=== PATIENT | female | born 1990 | race African-American/Black ===

== ENCOUNTER 2016-12-26 10:21 | Outpatient (CLI) | payer OTHER ==
--- NOTE | 2016-12-26 13:08 | ULT ---
COMPLETE OB ULTRASOUND GREATER THAN 14 WEEKS: FINDINGS: Single viable intrauterine fetus in cephalic presentation. Placenta is posterior. Amniotic fluid is w ithin normal limits. heart rate 132 beats/minute. Lower uterine segment and cervix were very po óscar seen so that cervical length could not be measured. anatomy: Visualized brain, four chamber heart, three vessel cord, stomach, bladder, kidneys and visualiz ed extremities are unremarkable. biometry: BPD 4.8 cm 20 weeks 3 days HC 17.9 cm 20 weeks 2 days AC 14.2 cm 19 weeks 4 days FL 3.3 cm 20 weeks 3 days IMPRESSION: Single viable intrauterine fetus, 20 weeks 1 day gestational age and FEMI 18, which is the same a s the clinical age by LMP. Estimated weight 325 grams. Lower uterine segment and cervical were very poorly seen and cervical length could not be measured. POS: [facility]
== END 2016-12-26 10:22 | disposition home or self-care (01) ==
LOC: ULT 10:21
PROVIDERS: ATTEND Nurse Practitioner
DX: O09.A2 Supervision of pregnancy with history of molar pregnancy, second trimester (principal); Z3A.20 20 weeks gestation of pregnancy
CPT/HCPCS: 76805

== ENCOUNTER 2017-04-08 07:56 | Day surgery (SDC) | payer OTHER ==
[2017-04-08 08:34] VITALS: BMI 25.0
[2017-04-08 09:11] LABS: Bilirubin Negative (Negative); Blood, Urine Negative (Negative); Clarity CLOUDY (Clear); Glucose, Urine (Dipstick) Negative (Negative); Leukocyte Large (Negative); Nitrite Positive (Negative); Protein, Urine (Dipstick) Negative (Neg-Trace); Specific Gravity, Urine 1.018 (1.002-1.036)
[2017-04-08 09:12] LABS: Bacteria/HPF 4+ HPF (None Seen); Squamous Epithelial 0-3 HPF (0-3)
[2017-04-08 09:16] LABS: Pathc Cast-AUWi Flag 2.98 (0-2.49)
[2017-04-08 09:22] LABS: Hyaline Casts/LPF 0-3 HYALINE CAST LPF (0-3 Hyaline); Manual Microscopic Reviewed? No Path Casts Seen; RBC/HPF 0-3 HPF (0-3)
[2017-04-08 09:39] LABS: FFN Internal QC Analyzer PASS (PASS); FFN Internal QC Cassette PASS (PASS); Fetal Fibronectin Negative (Negative)
[2017-04-08] MEDS ORDERED: cefTRIAXone\\ROCEPHIN 1 GM VIAL IM SCH ×2 (10:00→10:30)
[2017-04-08] MEDS ORDERED: Lidocaine 1% PF 5 ML VIAL FS SCH (10:30)
--- NOTE | 2017-04-08 14:52 | PRG ---
DATE OF SERVICE: 04/08/2017 OB ED NOTE TIME OF SERVICE: 10:15. PRESENTING COMPLAINT: Vaginal discharge with small amount of spotting. HISTORY OF PRESENT ILLNESS: Ms. Wu is a 26-year-old 3, para 2, at 34 weeks gestation who s ees Dr. Rodriguez Gold at [facility]. She reports that she is currently taking Macrobid for UTI . She reports noncompliance with her therapy. She states she had a small amount of vaginal discharg e this morning with a small amount of blood. She denies recent intercourse. She denies fever, chill s, nausea, vomiting or rupture of membranes. She reports an active fetus. She denies significant lo wer back pain. OB AND BI LEAD HISTORY: x2. Denies history of complications. PAST MEDICAL HISTORY: None. PAST SURGICAL HISTORY: None. ALLERGIES: SEAFOOD. SOCIAL HISTORY: Denies tobacco, alcohol, or drug use. FAMILY HISTORY: Noncontributory. REVIEW OF SYSTEMS: Noncontributory. PHYSICAL EXAMINATION: GENERAL: White female, in no acute distress. VITAL SIGNS: Temperature 98.4, respirations 18 and blood pressure 119/72. HEENT: Within normal limits. LUNGS: Clear to auscultation bilaterally. HEART: Regular rhythm. ABDOMEN: Soft and nontender. FHTs 130s to 140s. GENITOURINARY: Vulva is without lesions. Vagina has a small amount of visible discharge. Cervical exam is deferred. No CVA tenderness is noted. [employer]-3 and fibronectin collected in Fem-cath UA. LABORATORY DATA: Fem cath UA reveals positive nitrites, large leukocyte esterase, greater than 50 wb c's with 4+ bacteria, no RBCs. fibronectin was negative. [employer]-3 was positive for both Rachelle a nd Trichomonas. IMPRESSION: 1. Uncomplicated urinary tract infection of without evidence of pyelonephritis. The patie nt has been noncompliant on therapy. 2. Vaginal trichomoniasis. 3. Vaginal Rachelle. PLAN: 1. Rocephin 1 gram IM x1 on Labor and Delivery Unit. 2. Flagyl 500 p.o. b.i.d. x5 days. 3. The patient to follow up with Dr. Gold tomorrow and can receive treatment for candidal vulvar ca ndidiasis after antibiotics are completed for her UTI.
== END 2017-04-08 11:10 | disposition home or self-care (01) ==
LOC: L&D/OP 07:56
PROVIDERS: ATTEND Family Medicine
DX: O23.43 Unspecified infection of urinary tract in pregnancy, third trimester (principal); A59.01 Trichomonal vulvovaginitis; B37.3 Candidiasis of vulva and vagina; O26.853 Spotting complicating pregnancy, third trimester; Z3A.34 34 weeks gestation of pregnancy; Z79.2 Long term (current) use of antibiotics; Z91.013 Allergy to seafood
CPT/HCPCS: 81001; 82731; 87480; 87510; 87660; 96372; 99284; A4353; J0696; J2001

== ENCOUNTER 2019-08-18 09:38 | Outpatient (CLI) | payer OTHER ==
--- NOTE | 2019-08-18 10:35 | ULT ---
Obstetrical ultrasound: 08/18/2019 COMPARISON: None HISTORY: anatomy assessment TECHNIQUE: Multiplanar grayscale sonographic imaging of the gravid uterus obtained. FINDINGS: Cervical length is 3.7 cm. Single intrauterine gestation present with a vertex presentation . Placenta located anteriorly with no evidence for previa or abruption. Four-chamber heart view appears normal. heart rate is 144 bpm. The stomach, kidneys, urinary bladder, umbilical cord and cord insertion site, nose and lips, s pine, and intracranial contents appear grossly unremarkable. Amniotic fluid index is 11.1 cm. biometry: BPD 7.0 cm 28 weeks 2 days HC 26.1 cm 28 weeks 3 days Abdominal circumference 23.9 cm 28 weeks 2 days FL 5 cm 27 weeks 1 day Average age based on ultrasound is 28 weeks 1 days with estimated date of delivery on 11/09/2019. Estimated weight 1133 g +/- 165 g (3rd percentile). Please note that this percentile may be art ificially decreased as the gestational age based on last menstrual period is 29 weeks 5 days. IMPRESSION: Intrauterine gestation as detailed above.
== END 2019-08-18 09:39 | disposition home or self-care (01) ==
LOC: BICULT 09:38
PROVIDERS: ATTEND Family Medicine
DX: O09.892 Supervision of other high risk pregnancies, second trimester (principal)
CPT/HCPCS: 76805

== ENCOUNTER 2019-10-06 09:57 | Inpatient (IN) | payer OTHER ==
[2019-10-06 10:31] VITALS: BMI 29.0
[2019-10-06] MEDS ORDERED: EPHEDRINE 25 MG/5 ML SYRINGE ONE (11:28)
[2019-10-06] MEDS ORDERED: Bupivacaine/Epinephrine 0.25% 30 ML VIAL ONE (11:28)
[2019-10-06 11:29] LABS: #Basophils 0.1 thou/uL (0.0-0.2); #Eosinphils 0.2 thou/uL (0.0-0.7); #Lymphocytes 1.5 thou/uL (1.20-3.40); #Monocytes 0.8 thou/uL (0.11-0.59); #Neutrophils 4.7 thou/uL (1.40-6.50); %Basophils 0.9 % (0.0-1.0); %Eosinophils 2.1 % (0.0-10.0); %Lymphocytes 20.6 % (21.0-51.0); %Monocytes 11.7 % (0.0-10.0); %Neutrophils 64.7 % (42.0-75.0); Hemoglobin 11.2 g/dL (12.0-16.0); Mean Corpuscular HGB CONC 33.2 g/dL (32.0-36.0); Mean Corpuscular Hemoglobin 31.4 pg (27.0-31.0); Mean Corpuscular Volume 94.6 fL (78.0-98.0); Mean Platelet Volume 7.9 fL (7.4-10.4); Platelet Count 224 thou/uL (130-400); RBC Distribution Width 12.7 % (11.5-14.5); Red Blood Cell (RBC) Count 3.56 mill/uL (4.20-5.40); White Blood Cell (WBC) Count 7.2 thou/uL (4.8-10.8)
[2019-10-06 11:50] LABS: ALT (SGPT) 7 U/L (8-55); AST (SGOT) 16 U/L (5-34); Alkaline Phosphatase 143 U/L (40-110); Anion Gap 8 mmol/L (10-20); BUN (Urea Nitrogen) 5 mg/dL (7.0-18.7); Bilirubin, Total 0.3 mg/dL (0.2-1.2); Calc. Creatinine Clearance 154 mL/min (70-130); Calcium 8.5 mg/dL (7.8-10.44); Carbon Dioxide 25 mmol/L (22-29); Chloride 109 mmol/L (98-107); Estimated GFR-MDRD Greater than 90; Glucose 84 mg/dL (70-105); Potassium 3.4 mmol/L (3.5-5.1); Sodium 139 mmol/L (136-145)
[2019-10-06 11:56] LABS: Creatinine, Urine 101.65 mg/dL (47-110)
--- NOTE | 2019-10-06 12:18 | ULT ---
ULTRASOUND BIOPHYSICAL PROFILE: DATE: 10/06/2019 HISTORY: 29-year-old female in third trimester with preeclampsia FINDINGS: breathin tone: 2 movement: 2 Amniotic fluid volume: 2 lie: Vertex heart rate: 139 bpm DELORES: 13 cm IMPRESSION: Normal biophysical profile score of 8 out of 8, excluding the nonstress test.
[2019-10-06] MEDS ORDERED: Betamet Acet/Betamet Na Ph 30 MG/5 ML VIAL IM SCH (13:00)
[2019-10-06] MEDS ORDERED: hydrALAZINE 20 MG/ML VIAL ONE (14:56)
[2019-10-06] MEDS ORDERED: Penicillin G Potassium 5 MILL.UNITS in Sodium Chloride 0.9% 100 ML IVPB SCH (15:00)
[2019-10-06] MEDS ORDERED: Butorphanol Tartrate 1 MG/ML VIAL SLOW IVP PRN (15:04)
[2019-10-06] MEDS ORDERED: Carboprost 250 MCG/ML AMP IM PRN (15:04)
[2019-10-06] MEDS ORDERED: Diphenoxylate HCl/Atropine Tablet PO PRN (15:04)
[2019-10-06] MEDS ORDERED: hydrALAZINE 20 MG/ML VIAL SLOW IVP PRN (15:04)
[2019-10-06] MEDS ORDERED: Ondansetron PF 4 MG/2 ML Vial IVP PRN (15:04)
[2019-10-06] MEDS ORDERED: Lidocaine 1% (PF) 30 ML VIAL SC PRN (15:04)
[2019-10-06] MEDS ORDERED: Promethazine HCl 25 MG/ML VIAL IM PRN (15:04)
[2019-10-06] MEDS ORDERED: HYDROcodone/Acetaminophen 5/325 mg Tablet PO PRN (15:04)
[2019-10-06] MEDS ORDERED: Misoprostol 200 MCG TAB PR PRN (15:04)
[2019-10-06] MEDS ORDERED: NS w/ Oxytocin 10 units 500 ML IV SCH (15:15)
[2019-10-06 17:42] LABS: HBSAg Index 0.14 S/CO (0-0.99); Hep B Surf Ag Non-Reactive S/CO (NonReactive); Syphilis Antibody Nonreactive (Nonreactive); Syphilis Antibody Index 0.15 S/CO (<1.00 Non-Reactive)
[2019-10-07] MEDS ORDERED: Betamet Acet/Betamet Na Ph 30 MG/5 ML VIAL IM SCH (00:01)
[2019-10-07] MEDS: Misoprostol 100 MCG TAB PO SCH ×2 (00:23→09:02)
[2019-10-07] MEDS: Lactated Ringer's 1,000 ML IV SCH ×3 (00:24→11:25)
[2019-10-07] MEDS ORDERED: Fentanyl 4 mcg/Bup 0.1% Cadd 100 ML ONE ×3 (01:13→14:11)
[2019-10-07] MEDS ORDERED: diphenhydrAMINE 50 MG/ML VIAL IVP PRN (02:02)
[2019-10-07] MEDS ORDERED: Naloxone HCl 0.4 mg/ml Vial IVP PRN ×2 (02:02)
[2019-10-07] MEDS ORDERED: Ondansetron PF 4 MG/2 ML Vial IVP PRN ×2 (02:02→18:59)
[2019-10-07] MEDS ORDERED: Acetaminophen 325 MG TAB PO PRN (02:02)
[2019-10-07] MEDS ORDERED: EPHEDRINE 25 MG/5 ML SYRINGE SLOW IVP PRN (02:02)
[2019-10-07] MEDS ORDERED: Lactated Ringer's 500 ML IV PRN (02:02)
[2019-10-07] MEDS ORDERED: Promethazine HCl 25 MG/ML VIAL IM PRN ×2 (02:02→18:59)
[2019-10-07] MEDS ORDERED: Communication Order-Pharmacy FS SCH (02:15)
[2019-10-07] MEDS ORDERED: Fentanyl 4 mcg/Bupivacaine 0.1% Cassette 100 ML EPIDURAL SCH (02:15)
[2019-10-07] MEDS: Penicillin G 2.5 MILL.units 2.5 MILL.UNITS in Premix Bag 1 BAG IVPB SCH ×4 (04:49→14:09)
[2019-10-07] MEDS ORDERED: hydrALAZINE 20 MG/ML VIAL SLOW IVP SCH (06:45)
[2019-10-07] MEDS: NS w/ Oxytocin 10 units 500 ML IV SCH (09:03)
[2019-10-07] MEDS ORDERED: Magnesium Sulfate 20 gm/500 ml 20 GM/500 ML BAG ONE (10:01)
[2019-10-07] MEDS ORDERED: Magnesium Sulfate 20 gm/500 ml 20 GM/500 ML BAG IVPB PRN (10:49)
[2019-10-07] MEDS ORDERED: Magnesium Sulfate 20 gm/500 ml 4 GM/100 ML BAG IVPB SCH (11:00)
[2019-10-07 12:30] LABS: SARS-CoV-2 MS2 Positive; SARS-CoV-2 N Gene Negative; SARS-CoV-2 S Gene Negative; SARS-CoV-2 by NAA Not Detected (NotDetected); SARS-CoV-2 orf1ab Negative
[2019-10-07] MEDS: NS / Oxytocin 40 units/1000ml 1,000 ML IV PRN ×2 (17:25→18:42)
[2019-10-07] MEDS ORDERED: Carboprost 250 MCG/ML AMP ONE (18:30)
[2019-10-07] MEDS ORDERED: HYDROcodone/Acetaminophen 5/325 mg Tablet PO PRN (18:59)
[2019-10-07] MEDS ORDERED: diphenhydrAMINE 25 MG CAP PO PRN (18:59)
[2019-10-07] MEDS ORDERED: Calcium Gluconate 4.6 MEQ in Sodium Chloride 0.9% 100 ML IVPB PRN (18:59)
[2019-10-07] MEDS ORDERED: Benzocaine-Menthol 82.5 ML CAN TOP PRN (18:59)
[2019-10-07] MEDS ORDERED: Preparation H Ointment 28 GM TUBE PR PRN (18:59)
[2019-10-07] MEDS ORDERED: Milk Of Magnesia 30 ML UDCUP PO PRN (18:59)
[2019-10-07] MEDS ORDERED: NS / Oxytocin 40 units/1000ml 1,000 ML IV SCH (18:59)
[2019-10-07] MEDS ORDERED: Bisacodyl 10 MG SUPP PR PRN (18:59)
[2019-10-07] MEDS ORDERED: Diphenoxylate HCl/Atropine Tablet PO SCH (20:00)
[2019-10-07] MEDS: HYDROcodone/Acetaminophen 5/325 mg Tablet PO PRN (20:25)
[2019-10-07] MEDS: Docusate Calcium (SURFAK) 240 MG CAP PO SCH (21:33)
[2019-10-07] MEDS: Ibuprofen 800 MG TAB PO SCH (21:53)
[2019-10-08] MEDS ORDERED: Diphenoxylate HCl/Atropine Tablet PO PRN
[2019-10-08] MEDS ORDERED: hydrALAZINE 20 MG/ML VIAL ONE (00:51)
[2019-10-08] MEDS ORDERED: hydrALAZINE 20 MG/ML VIAL SLOW IVP PRN (00:52)
[2019-10-08] MEDS: Magnesium Sulfate 20 gm/500 ml 20 GM/500 ML BAG IVPB SCH ×2 (04:19→14:38)
[2019-10-08] MEDS: HYDROcodone/Acetaminophen 5/325 mg Tablet PO PRN (04:35)
[2019-10-08] MEDS: Ibuprofen 800 MG TAB PO SCH ×2 (05:51→16:30)
[2019-10-08 07:01] LABS: Hemoglobin 11.7 g/dL (12.0-16.0); Mean Corpuscular HGB CONC 33.6 g/dL (32.0-36.0); Mean Corpuscular Hemoglobin 32.1 pg (27.0-31.0); Mean Corpuscular Volume 95.6 fL (78.0-98.0); Mean Platelet Volume 8.3 fL (7.4-10.4); Platelet Count 265 thou/uL (130-400); RBC Distribution Width 13.1 % (11.5-14.5); Red Blood Cell (RBC) Count 3.64 mill/uL (4.20-5.40); White Blood Cell (WBC) Count 14.4 thou/uL (4.8-10.8)
[2019-10-08] MEDS ORDERED: Adacel (T-DAP) 0.5 ML SYRINGE IM ONE (09:00)
[2019-10-08] MEDS: Docusate Calcium (SURFAK) 240 MG CAP PO SCH (12:01)
[2019-10-08] MEDS: Prenatal Vitamin 1 TAB PO SCH (12:01)
[2019-10-08] MEDS: Ferrous Sulfate 325 MG TAB PO SCH ×2 (22:49→22:51)
[2019-10-09] MEDS: Ibuprofen 800 MG TAB PO SCH ×3 (00:23→14:19)
[2019-10-09] MEDS: Docusate Calcium (SURFAK) 240 MG CAP PO SCH ×2 (00:23→09:27)
[2019-10-09] MEDS: Ferrous Sulfate 325 MG TAB PO SCH ×2 (07:21→17:01)
[2019-10-09] MEDS: Lactated Ringer's 1,000 ML IV SCH (07:22)
[2019-10-09] MEDS: NS w/ Oxytocin 10 units 500 ML IV SCH (07:23)
[2019-10-09] MEDS: Prenatal Vitamin 1 TAB PO SCH (09:27)
[2019-10-09 17:46] VITALS: BP 147/97; TEMP 99.1
== END 2019-10-09 19:50 | disposition home or self-care (01) | DRG 807 ==
LOC: L&D/OP 09:57 → L&D 16:17 → 3SE 10-08 23:39
PROVIDERS: ADMIT Family Medicine; ATTEND Family Medicine
PROC: 10E0XZZ Delivery of Products of Conception, External Approach (ICD-10-PCS; principal; 2019-10-07)
PROC: 10907ZC Drainage of Amniotic Fluid, Therapeutic from Products of Conception, Via Natural or Artificial Opening (ICD-10-PCS; 2019-10-07)
DX: O14.14 Severe pre-eclampsia complicating childbirth (principal); Z37.0 Single live birth; Z20.828 Contact with and (suspected) exposure to other viral communicable diseases; O13.4 Gestational [pregnancy-induced] hypertension without significant proteinuria, complicating childbirth; O60.14X0 Preterm labor third trimester with preterm delivery third trimester, not applicable or unspecified; Z3A.36 36 weeks gestation of pregnancy; O69.81X0 Labor and delivery complicated by cord around neck, without compression, not applicable or unspecified
CPT/HCPCS: 36415; 51702; 76819; 80053; 82570; 83735; 84156; 85025; 85027; 86780; 86850; 86900; 86901; 87340; 87635; 99285; J0360; J0702; J2405; J2540; J2590; J3475; J3490; U0003

== ENCOUNTER 2021-03-03 12:46 | Outpatient (CLI) | payer OTHER ==
[2021-03-04 07:07] LABS: SARS-CoV-2 NAA Rapid Test Not Detected (NotDetected)
== END 2021-03-03 12:47 | disposition home or self-care (01) ==
LOC: LABBT 12:46
PROVIDERS: ATTEND Urology
DX: Z01.812 Encounter for preprocedural laboratory examination (principal); N20.2 Calculus of kidney with calculus of ureter; Z20.822 Contact with and (suspected) exposure to COVID-19
CPT/HCPCS: U0002; U0003; U0005

== ENCOUNTER 2021-03-04 10:51 | Day surgery (SDC) | payer OTHER ==
[2021-03-01 11:05] VITALS: BMI 25.7
[2021-03-04] MEDS ORDERED: Midazolam HCl 2 mg/2 ml Vial ONE (12:55)
[2021-03-04] MEDS ORDERED: Fentanyl 100 MCG/2 ML VIAL ONE ×2 (12:55→14:36)
[2021-03-04] MEDS ORDERED: Iothalamate Meglumine 60% 50 ML VIAL FS ONE (13:00)
[2021-03-04] MEDS ORDERED: Levofloxacin 500 mg/D5W 100 ml Premix Bag ONE (13:03)
[2021-03-04] MEDS ORDERED: Ketorolac Tromethamine 30 MG/ML VIAL ONE ×2 (13:09→14:21)
[2021-03-04] MEDS ORDERED: PROPOFOL 200 MG/20 ML VIAL ONE (13:09)
[2021-03-04] MEDS ORDERED: Lidocaine 1% PF 5 ML VIAL ONE (13:09)
[2021-03-04] MEDS ORDERED: Dexamethasone 20 MG/5 ML VIAL ONE (13:09)
[2021-03-04] MEDS ORDERED: Ondansetron PF 4 MG/2 ML Vial ONE (13:09)
[2021-03-04] MEDS ORDERED: Phenazopyridine HCl 100 MG TAB ONE (14:22)
[2021-03-04] MEDS ORDERED: Oxybutynin 5 MG TAB ONE (14:22)
[2021-03-04] MEDS ORDERED: HYDROcodone/Acetaminophen 5/325 mg Tablet ONE (15:39)
== END 2021-03-04 16:45 | disposition home or self-care (01) ==
LOC: SDC 10:51
PROVIDERS: ATTEND Urology
DX: N20.2 Calculus of kidney with calculus of ureter (principal); R39.15 Urgency of urination; Z91.013 Allergy to seafood; Z01.812 Encounter for preprocedural laboratory examination; Z20.822 Contact with and (suspected) exposure to COVID-19
CPT/HCPCS: 74420; C2617; J1100; J1885; J1956; J2250; J2405; J2704; J3010; Q9961-U8; U0002; U0003; U0005

== ENCOUNTER 2021-12-26 21:04 | Emergency (ER) | payer OTHER ==
[2021-12-26] MEDS ORDERED: Acetaminophen 500 MG TAB ONE (21:25)
[2021-12-26] MEDS ORDERED: Ibuprofen 200 MG TAB ONE (21:25)
== END 2021-12-26 21:45 | disposition home or self-care (01) ==
LOC: ERS 21:04
DX: M79.672 Pain in left foot (principal); G89.29 Other chronic pain
CPT/HCPCS: 99283

== ENCOUNTER 2024-10-21 11:45 | Outpatient (CLI) | payer OTHER | END 2024-10-21 11:46 | disposition home or self-care (01) | LOC: PET 11:45 | PROVIDERS: ATTEND Internal Medicine Hematology & Oncology | DX: R16.1 Splenomegaly, not elsewhere classified (principal); R59.1 Generalized enlarged lymph nodes; D50.0 Iron deficiency anemia secondary to blood loss (chronic) | CPT/HCPCS: 78815; A9552 ==